=== PATIENT | female | born 1950 | race Caucasian/White ===

== ENCOUNTER 2018-04-08 09:18 | Outpatient (CLI) | payer MEDICARE, OTHER ==
--- NOTE | 2018-04-08 15:39 | MMO ---
BILATERAL SCREENING MAMMOGRAMS: DATE: 04/08/18 Reference made to prior mammograms dating back to March 2012. This patient's mammogram was interpreted with the assistance of computer-aided detection. FINDINGS: There are scattered fibroglandular elements bilaterally. No evidence of a new dominant mass, suspicio us clustering of microcalcification, or architectural distortion. There is benign-appearing punctate calcification bilaterally. No significant interval detrimental change. IMPRESSION: BIRADS 2: Benign Finding(s) Annual screening mammography is recommended. POS: [facility]
== END 2018-04-08 09:19 | disposition home or self-care (01) ==
LOC: SCSMAMMO 09:18
PROVIDERS: ATTEND Obstetrics & Gynecology
DX: Z12.31 Encounter for screening mammogram for malignant neoplasm of breast (principal)
CPT/HCPCS: 77067

== ENCOUNTER 2019-02-28 09:00 | Outpatient (CLI) | payer MEDICARE, OTHER ==
--- NOTE | 2019-02-28 09:57 | BD ---
EXAM: DEXA bone density examination HISTORY: 68-year-old postmenopausal female for screening COMPARISON: None FINDINGS: L1--bone mineral density 0.908 g/sq cm; T score -0.7 L2--bone mineral density 0.991 g/sq cm; T score -0.3 L3--bone mineral density 0.955 g/sq cm; T score -1.2 L4--bone mineral density 0.975 g/sq cm; T score -0.8 Total L1-L4--bone mineral density 0.958 g/sq cm; T score -0.8 Left femoral neck--bone mineral density0.654; T score -1.8 Total proximal left femur--bone mineral density 0.931; T score -0.1 IMPRESSION: Osteopenia
== END 2019-02-28 09:01 | disposition home or self-care (01) ==
LOC: BICMAMMO 09:00
PROVIDERS: ATTEND Obstetrics & Gynecology
DX: Z13.820 Encounter for screening for osteoporosis (principal); M85.89 Other specified disorders of bone density and structure, multiple sites
CPT/HCPCS: 77080

== ENCOUNTER 2019-04-12 10:23 | Outpatient (CLI) | payer MEDICARE, OTHER ==
--- NOTE | 2019-04-12 11:11 | MMO ---
Bilateral MAMMO Bilat Screen [facility]. CLINICAL HISTORY: Patient is 68 years old and is seen for screening. The patient has no family history of breast cancer. The patient has no personal history of cancer. VIEWS: The views performed were: bilateral craniocaudal with tomosynthesis and bilateral mediolateral oblique with tomosynthesis. FILMS COMPARED: The present examination has been compared to prior imaging studies performed at [facility] on 04/02/2015, 04/03/2016, 04/06/2017 and 04/12/2019. This study has been interpreted with the assistance of computer-aided detection. MAMMOGRAM FINDINGS: There are scattered fibroglandular densities. There are stable benign appearing calcifications seen in both breasts. There are no suspicious masses, suspicious calcifications, or new areas of architectural distortion. IMPRESSION: THERE IS NO MAMMOGRAPHIC EVIDENCE OF MALIGNANCY. A ROUTINE FOLLOW-UP MAMMOGRAM IN 1 YEAR IS RECOMMENDED. THE RESULTS OF THIS EXAM WERE SENT TO THE PATIENT. ACR BI-RADS Category 2 - Benign finding MAMMOGRAPHY NOTE: 1. A negative mammogram report should not delay a biopsy if a dominant of clinically suspicious mass is present. 2. Approximately 10% to 15% of breast cancers are not detected by mammography. 3. Adenosis and dense breasts may obscure an underlying neoplasm. Reported by: VIET SANDOVAL MD Electonically Signed: [id number]
== END 2019-04-12 10:24 | disposition home or self-care (01) ==
LOC: BICMAMMO 10:23
PROVIDERS: ATTEND Obstetrics & Gynecology
DX: Z12.31 Encounter for screening mammogram for malignant neoplasm of breast (principal)
CPT/HCPCS: 77063; 77067

== ENCOUNTER 2020-08-31 09:35 | Outpatient (CLI) | payer MEDICARE, OTHER | END 2020-08-31 09:36 | disposition home or self-care (01) | LOC: BICMAMMO 09:35 | PROVIDERS: ATTEND Family Medicine | DX: Z12.31 Encounter for screening mammogram for malignant neoplasm of breast (principal) | CPT/HCPCS: 77063; 77067 ==

== ENCOUNTER 2020-11-14 09:17 | Day surgery (SDC) | payer MEDICARE, OTHER ==
[2020-11-14] MEDS ORDERED: Ondansetron PF 4 MG/2 ML Vial ONE ×2 (09:43→15:41)
[2020-11-14] MEDS ORDERED: Ketorolac Tromethamine 30 MG/ML VIAL ONE (09:43)
[2020-11-14 09:47] LABS: #Lymphocytes 0.7 thou/uL (1.20-3.40); #Monocytes 0.4 thou/uL (0.11-0.59); #Neutrophils 9.1 thou/uL (1.40-6.50); %Basophils 0.3 % (0.0-1.0); %Eosinophils 0.2 % (0.0-10.0); %Monocytes 4.3 % (0.0-10.0); %Neutrophils 88.2 % (42.0-75.0); Hemoglobin 14.2 g/dL (12.0-16.0); Mean Corpuscular HGB CONC 35.3 g/dL (32.0-36.0); Mean Corpuscular Hemoglobin 32.9 pg (27.0-31.0); Mean Corpuscular Volume 93.2 fL (78.0-98.0); Mean Platelet Volume 6.4 fL (7.4-10.4); Platelet Count 344 thou/uL (130-400); RBC Distribution Width 11.4 % (11.5-14.5); Red Blood Cell (RBC) Count 4.31 mill/uL (4.20-5.40); White Blood Cell (WBC) Count 10.3 thou/uL (4.8-10.8)
[2020-11-14 10:05] LABS: Bacteria/HPF None Seen HPF (None Seen); Bilirubin Negative (Negative); Blood, Urine 2+ (Negative); Calcium Oxalate Crystals Rare HPF (None Seen); Clarity Clear (Clear); Glucose, Urine (Dipstick) Normal (Negative); Ketone, Urine 20 mg/dL (Negative); Leukocyte 75 Leu/uL (Negative); Nitrite Negative (Negative); Protein, Urine (Dipstick) 20 mg/dL (Neg-Trace); RBC/HPF Greater than 50 HPF (0-3); Specific Gravity, Urine 1.025 (1.002-1.036); Squamous Epithelial 0-3 HPF (0-3); Urobilinogen Normal mg/dL (Less than 2); pH, Urine 6.5 (5.0-9.0)
[2020-11-14 10:08] LABS: ALT (SGPT) 13 U/L (8-55); AST (SGOT) 18 U/L (5-34); Albumin 4.6 g/dL (3.4-4.8); Alkaline Phosphatase 126 U/L (40-110); Anion Gap 16 mmol/L (10-20); BUN (Urea Nitrogen) 23 mg/dL (9.8-20.1); Bilirubin, Total 0.7 mg/dL (0.2-1.2); Calc. Creatinine Clearance 0 mL/min (70-130); Calcium 9.7 mg/dL (7.8-10.44); Carbon Dioxide 20 mmol/L (23-31); Chloride 106 mmol/L (98-107); Globulin 3.1 g/dL (2.4-3.5); Glucose 119 mg/dL (83-110); Lipase 13 U/L (8-78); Potassium 4.4 mmol/L (3.5-5.1); Protein, Total 7.7 g/dL (5.8-8.1); Sodium 138 mmol/L (136-145)
[2020-11-14 12:55] LABS: SARS-CoV-2 NAA Rapid Test Not Detected (NotDetected)
[2020-11-14] MEDS ORDERED: Iothalamate Meglumine 60% 50 ML VIAL FS ONE (15:23)
[2020-11-14] MEDS ORDERED: Dexamethasone 20 MG/5 ML VIAL ONE (15:41)
[2020-11-14] MEDS ORDERED: PROPOFOL 200 MG/20 ML VIAL ONE (15:41)
== END 2020-11-14 17:45 | disposition home or self-care (01) ==
LOC: ERS 09:17 → SDC/OP 11:00
PROVIDERS: ATTEND Urology
PROC: 0T768DZ Dilation of Right Ureter with Intraluminal Device, Via Natural or Artificial Opening Endoscopic (ICD-10-PCS; principal; 2020-11-14)
DX: N13.2 Hydronephrosis with renal and ureteral calculous obstruction (principal); K57.30 Diverticulosis of large intestine without perforation or abscess without bleeding; I10 Essential (primary) hypertension; E78.00 Pure hypercholesterolemia, unspecified; K82.8 Other specified diseases of gallbladder; Z79.899 Other long term (current) drug therapy; Z20.822 Contact with and (suspected) exposure to COVID-19
CPT/HCPCS: 52332; 74176; 74420; 80053; 83690; 85025; 87086; Q9961; U0002; U0005; 81003; 81015; 96365; 96375; J0690; J1100; J1885; J2405; J2704

== ENCOUNTER 2020-11-15 11:43 | Outpatient (CLI) | payer MEDICARE, OTHER ==
[2020-11-15 14:33] LABS: PTT 24.7 sec (22.0-33.0); Prothrombin Time 10.4 sec (9.5-12.1)
[2020-11-15 14:38] LABS: Platelet Count 294 thou/uL (130-400)
[2020-11-15 14:41] LABS: EPI 109 SEC (67-199)
[2020-11-16 00:58] LABS: SARS-CoV-2 PCR by NAA Not Detected (NotDetected)
== END 2020-11-15 11:44 | disposition home or self-care (01) ==
LOC: LABBT 11:43
PROVIDERS: ATTEND Urology
DX: Z01.818 Encounter for other preprocedural examination (principal); N20.1 Calculus of ureter; Z20.822 Contact with and (suspected) exposure to COVID-19
CPT/HCPCS: 85576; 85610; 85730; U0003; U0005; 87635

== ENCOUNTER 2020-11-20 06:10 | Day surgery (SDC) | payer MEDICARE, OTHER ==
[2020-11-16 13:00] VITALS: BMI 25.7
[2020-11-20] MEDS ORDERED: Fentanyl 100 MCG/2 ML VIAL ONE (06:31)
[2020-11-20] MEDS ORDERED: Midazolam HCl 2 mg/2 ml Vial ONE (06:31)
[2020-11-20] MEDS ORDERED: Iothalamate Meglumine 60% 50 ML VIAL FS ONE ×2 (06:45→08:16)
[2020-11-20] MEDS ORDERED: Lidocaine 4% Topical Sol 50 ML BOT ONE (06:45)
[2020-11-20] MEDS ORDERED: Lidocaine 2% PF 5 ML VIAL ONE (08:16)
[2020-11-20] MEDS ORDERED: PROPOFOL 200 MG/20 ML VIAL ONE (08:30)
[2020-11-20] MEDS ORDERED: Ondansetron PF 4 MG/2 ML Vial ONE (08:30)
[2020-11-20] MEDS ORDERED: Dexamethasone 20 MG/5 ML VIAL ONE (08:30)
[2020-11-20] MEDS ORDERED: Meperidine HCl/PF 25 MG/ML VIAL ONE (10:05)
== END 2020-11-20 11:55 | disposition home or self-care (01) ==
LOC: SDC 06:10
PROVIDERS: ATTEND Urology
PROC: 0TF6XZZ Fragmentation in Right Ureter, External Approach (ICD-10-PCS; principal; 2020-11-20)
PROC: 0TP98DZ Removal of Intraluminal Device from Ureter, Via Natural or Artificial Opening Endoscopic (ICD-10-PCS; 2020-11-20)
DX: N20.1 Calculus of ureter (principal); I10 Essential (primary) hypertension; E78.00 Pure hypercholesterolemia, unspecified; K86.9 Disease of pancreas, unspecified; Z79.2 Long term (current) use of antibiotics; Z79.899 Other long term (current) drug therapy
CPT/HCPCS: 74018; J1100; J2001; J2175; J2250; J2405; J2704; J3010; Q9961

== ENCOUNTER 2020-12-28 07:49 | Outpatient (CLI) | payer MEDICARE, OTHER ==
[2020-12-28] MEDS ORDERED: Magnevist 469MG/ML 20 ML VIAL ONE (10:10)
== END 2020-12-28 07:50 | disposition home or self-care (01) ==
LOC: BICCT 07:49
PROVIDERS: ATTEND Family Medicine
DX: K86.2 Cyst of pancreas (principal); R91.8 Other nonspecific abnormal finding of lung field; D49.0 Neoplasm of unspecified behavior of digestive system
CPT/HCPCS: 71250; 74183; A9579

== ENCOUNTER 2022-02-05 08:38 | Outpatient (CLI) | payer MEDICARE, OTHER ==
[2022-02-05] MEDS ORDERED: Magnevist 469MG/ML 20 ML VIAL ONE (10:14)
== END 2022-02-05 08:39 | disposition home or self-care (01) ==
LOC: MRI 08:38
PROVIDERS: ATTEND Internal Medicine Gastroenterology
DX: K86.2 Cyst of pancreas (principal); K86.89 Other specified diseases of pancreas
CPT/HCPCS: 74183; 82565; A9579

== ENCOUNTER 2022-08-04 12:59 | Outpatient (CLI) | payer MEDICARE, OTHER ==
[~2022-08-04 12:59] MED LIST: Iopamidol-370 76% 500 ML 1 ML ONE
== END 2022-08-04 13:00 | disposition home or self-care (01) ==
LOC: BICCT 12:59
PROVIDERS: ATTEND Surgery Surgical Oncology
DX: D49.0 Neoplasm of unspecified behavior of digestive system (principal); K63.89 Other specified diseases of intestine
CPT/HCPCS: 74178; 82565; Q9967

== ENCOUNTER 2022-09-15 10:07 | Outpatient (CLI) | payer MEDICARE, OTHER | END 2022-09-15 10:08 | disposition home or self-care (01) | LOC: BICMAMMO 10:07 | PROVIDERS: ATTEND Family Medicine | DX: Z12.31 Encounter for screening mammogram for malignant neoplasm of breast (principal) | CPT/HCPCS: 77063; 77067 ==

== ENCOUNTER 2022-12-05 09:30 | Outpatient (CLI) | payer MEDICARE, OTHER | END 2022-12-05 09:31 | disposition home or self-care (01) | LOC: SCSMRI 09:30 | PROVIDERS: ATTEND Transplant Surgery | DX: D01.7 Carcinoma in situ of other specified digestive organs (principal); K86.2 Cyst of pancreas | CPT/HCPCS: 74183 ==